=== PATIENT | male | born 1950 | race Hispanic/Latino ===

== ENCOUNTER 2018-08-01 10:01 | Emergency (ER) | payer MEDICARE ==
[2018-08-01 10:23] LABS: APPEARANCE,URINE Clear (CLEAR); BILIRUBIN,URINE Small (NEGATIVE); COLOR,URINE Dark Yellow (YELLOW); GLUCOSE, URINE (UA) Negative (NEGATIVE); KETONES,URINE Trace mg/dL (NEGATIVE); LEUKOCYTE ESTERASE ,URINE Moderate (NEGATIVE); NITRATE,URINE Negative (NEGATIVE); OCCULT BLOOD,URINE Negative (NEGATIVE); PROTEIN,URINE Negative (NEGATIVE)
[2018-08-01 10:33] LABS: BASOPHILS % (AUTO) 0.8 % (0.0-5.0); EOSINOPHILS % (AUTO) 1.1 % (0.0-8.0); HEMATOCRIT 32.8 % (42-54); LYMPHOCYTES % (AUTO) 16.8 % (21.0-51.0); MEAN CORPUSCULAR HEMOGLOBIN 32.5 pg (27.0-33.0); MEAN CORPUSCULAR HGB CONC 33.1 g/dL (32.0-36.0); MEAN CORPUSCULAR VOLUME 98.4 fL (79-99); NEUTROPHILS % (AUTO) 70.3 % (40.0-77.0); PLATELET COUNT (AUTO) 306 K/uL (130-400); RED BLOOD CELL COUNT(AUTO) 3.33 MIL/uL (4.50-6.20); RED CELL DISTRIBUTION WIDTH 14.9 % (11.0-15.5); WHITE BLOOD COUNT (AUTO) 8.2 K/uL (4.8-10.8)
[2018-08-01 10:37] LABS: CREATININE 1.8 mg/dL (0.5-1.5); POTASSIUM 4.8 mmol/L (3.5-5.1)
[2018-08-01 10:38] LABS: BACTERIA,URINE Moderate /HPF (None Seen); MUCUS,URINE Few LPF (None Seen); RBC,URINE None Seen /HPF (0-1); WBC,URINE 26-50 /HPF (0-1)
[2018-08-01 10:42] LABS: ALBUMIN 3.1 g/dL (3.5-5.0); BILIRUBIN,TOTAL 2.1 mg/dL (0.2-1.0)
[2018-08-01 11:04] LABS: INR 1.19 (0.85-1.15); PARTIAL THROMBOPLASTIN TIME 31.5 SEC (26.3-35.5); PROTHROMBIN TIME 12.5 SEC (9.6-11.6)
[2018-08-01] MEDS ORDERED: CEFTRIAXONE SODIUM 1 GM ONE (11:05)
[2018-08-01] MEDS ORDERED: SODIUM BICARB 50MEQ 50ML VIAL ONE (13:53)
[2018-08-01] MEDS ORDERED: LIDOCAINE HCL 1% 20 ML VIAL ONE (13:53)
--- NOTE | 2018-08-01 14:10 | NUR ---
U/S GD PARACENTESIS PROCEDURE PERFORMED BY DR KC. PUNCTURE SITE RIGHT UPPER QUADRANT AND PATIENT TOLERATED PROCEDURE WELL. TOTAL REMOVED 11.0 LITERS OF CLOUDY YELLOW FLUID. END OF PROCEDURE AT 1500. CATHETER REMOVED AND DRESSING APPLIED. NO BLEEDING NOTED. REPORT GIVEN TO MACHELLE HARRINGTON AND PATIENT TRANSPORTED TO ED VIA BED, STABLE, AAO X3 WITH NO C/O PAIN.
[2018-08-01] MEDS ORDERED: ALBUMIN (HUMAN) 25% 200 ML IV ONE (14:34)
[2018-08-01 16:58] LABS: APPEARANCE BODY FLUID CLEAR (CLEAR); COLOR,BODY FLUID YELLOW (LT YELLOW); SPECIMENTYPE,BODY FLUID ASCITES
[2018-08-01 16:59] LABS: BODY FLUID RBC 402 /cu. mm.; BODY FLUID WBC 56 /cu. mm.
[2018-08-01 17:59] LABS: BF LYMPHOCYTE 59 %; BF MONOCYTE 10 %; BF OTHER CELLS 10
[2018-08-01 19:02] LABS: TOTAL VOLUME,BODY FLUID 11000 mL
== END 2018-08-01 15:51 | disposition home or self-care (01) ==
LOC: EDH 10:01
DX: R18.8 Other ascites (principal); K74.60 Unspecified cirrhosis of liver; Z90.49 Acquired absence of other specified parts of digestive tract; Z87.891 Personal history of nicotine dependence
CPT/HCPCS: 36415; 49083; 80053; 81001; 83690; 85025; 85610; 85730; 87071; 87077; 87088; 87186; 87205; 88108; 88305; 89051; 96365; 96374; 99285; A4215; J0696; J3490; P9046